=== PATIENT | female | born 1955 | race Caucasian/White ===

== ENCOUNTER → 2020-06-18 | Outpatient (CLI) | payer MEDICARE, OTHER | LOC: OD 07:17 | PROVIDERS: ATTEND Physician Assistant | DX: M35.3 Polymyalgia rheumatica (principal); M62.81 Muscle weakness (generalized) | CPT/HCPCS: 36415; 85652; 86140 ==

== ENCOUNTER → 2020-08-16 | Outpatient (CLI) | payer MEDICARE, OTHER | LOC: OD 07:28 | PROVIDERS: ATTEND Physician Assistant | DX: M35.3 Polymyalgia rheumatica (principal) | CPT/HCPCS: 36415; 85652; 86140 ==